=== PATIENT | female | born 1985 | race Caucasian/White ===

== ENCOUNTER 2020-01-10 18:53 | Inpatient (IN) | payer MEDICAID, MEDICARE ==
[2020-01-10] MEDS ORDERED: Ondansetron 4 MG Tab.DIS PO ONE (19:30)
[2020-01-10] MEDS ORDERED: Codeine/guaiFENesin 10-100 MG/5 ML Syrup 5 ML Cup PO ONE (19:31)
[2020-01-10] MEDS ORDERED: Acetaminophen 500 MG Tab PO ONE (20:05)
[2020-01-10] MEDS ORDERED: Ibuprofen 800 MG Tab PO ONE (20:06)
--- NOTE | 2020-01-10 20:20 | EDM.PDOC ---
ED HPI GENERAL MEDICAL PROBLEM - General Chief Complaint: Respiratory Problem Stated Complaint: SOB,CONGESTIVE,COUGH Time Seen by Provider: 01/10/20 20:14 Source of Information: Reports: Patient History Limitations: Reports: No Limitations - History of Present Illness INITIAL COMMENTS - FREE TEXT/NARRATIVE: Va is a 34 yo female with COVID like symptoms, She has been unwell since last week. She was tested on Wednesday after a video based visit,but results are not back. She has fever,body aches,dry cough,diarrhea,fatigue.Her mother is here with same symptoms.She has obesity,DM2,and h/o pneumonia(admission in 2018). abdominal Pain Score (Numeric/FACES): 10 - Related Data Allergies Allergy/AdvReac Type Severity Reaction Status Date / Time No Known Allergies Allergy Verified 01/10/20 19:30 Past Medical History Endocrine/Metabolic History: Reports: Diabetes, Type II Other Endocrine/Metabolic History: on Metformin. Social & Family History - Family History Family Medical History: No Pertinent Family History - Tobacco Use Tobacco Use Status *Q: Never Tobacco User - Caffeine Use Caffeine Use: Reports: None - Recreational Drug Use Recreational Drug Use: No ED ROS GENERAL - Review of Systems Review Of Systems: Comprehensive ROS is negative, except as noted in HPI. ED EXAM, GENERAL - Physical Exam Exam: See Below Exam Limited By: No Limitations General Appearance: Alert, Anxious, Moderate Distress Ears: Normal External Exam Nose: Normal Inspection Throat/Mouth: Normal Inspection Head: Atraumatic Respiratory/Chest: Respiratory Distress, Retractions Cardiovascular: Normal Peripheral Pulses Course - Vital Signs Last Recorded V/S: Last Vital Signs Temp 99.9 F 01/10/20 19:10 Pulse 102 H 01/10/20 19:10 Resp 20 01/10/20 19:10 BP 145/94 H 01/10/20 19:10 Pulse Ox 94 L 01/10/20 19:10 - Orders/Labs/Meds Orders: Active Orders 24 hr Category Date Time Status Chest 1V Frontal [CR] Stat Exams 01/10/20 19:14 Taken C-REACTIVE PROTEIN [CHEM] Stat Lab 01/10/20 19:40 Received CBC WITH AUTO DIFF [HEME] Stat Lab 01/10/20 19:40 Received CORONAVIRUS COVID-19 [facility]ONICA [[facility]] Urgent Lab 01/10/20 19:21 Received CPK [CREATINE KINASE,CK] [CHEM] Stat Lab 01/10/20 19:40 Received D-DIMER QUANTITATIVE [COAG] Stat Lab 01/10/20 19:40 Received TROPONIN I [CHEM] Stat Lab 01/10/20 19:40 Received Labs: Laboratory Tests 01/10/20 Range/Units 19:40 Sodium 143 (135-145) mmol/L Potassium 3.6 (3.5-5.3) mmol/L Chloride 105 (100-110) mmol/L Carbon Dioxide 26 (21-32) mmol/L BUN 14 (7-18) mg/dL Creatinine 0.8 (0.55-1.02) mg/dL Est Cr Clr Drug Dosing TNP Estimated GFR (MDRD) > 60 (>60) BUN/Creatinine Ratio 17.5 (9-20) Glucose 117 H (80-116) mg/dL Calcium 9.1 (8.6-10.2) mg/dL Total Bilirubin 0.6 (0.1-1.3) mg/dL AST 26 H (5-25) IU/L ALT 23 (12-36) U/L Alkaline Phosphatase 53 L (56-112) IU/L Total Protein 7.4 (6.0-8.0) g/dL Albumin 3.4 L (3.5-5.2) g/dL Globulin 4.0 g/dL Albumin/Globulin Ratio 0.9 Meds: Medications Discontinued Medications Generic Name Dose Route Start Last Admin Trade Name Freq PRN Reason Stop Dose Admin Acetaminophen 1,000 mg 01/10/20 20:05 01/10/20 20:09 Tylenol Extra Strength PO 01/10/20 20:06 1,000 mg ONETIME ONE Administration Guaifenesin/Codeine Phosphate 5 ml 01/10/20 19:31 01/10/20 19:37 Robitussin Ac PO 01/10/20 19:32 5 ml ONETIME ONE Administration Ibuprofen 800 mg 01/10/20 20:06 01/10/20 20:07 Motrin PO 01/10/20 20:07 Not Given ONETIME ONE Ondansetron HCl 4 mg 01/10/20 19:30 01/10/20 19:37 Zofran Odt PO 01/10/20 19:31 4 mg ONETIME ONE Administration Departure - Departure Time of Disposition: 20:17 Disposition: Admitted As Inpatient 66 Condition: Good Clinical Impression: COVID-19 - Discharge Information Forms: ED Department Discharge Sepsis Event Note (ED) - Evaluation Sepsis Screening Result: Possible Sepsis Risk - Focused Exam Vital Signs: Vital Signs Temp Pulse Resp BP Pulse Ox 01/10/20 19:10 99.9 F 102 H 20 145/94 H 94 L - Problem List & Annotations (1) COVID-19 SNOMED Code(s): 436162546 Code(s): U07.1 - COVID-19 Status: Acute (2) Diabetes type 2, controlled SNOMED Code(s): 38224320, 421104760 Code(s): E11.9 - TYPE 2 DIABETES MELLITUS WITHOUT COMPLICATIONS Status: Acute Qualifiers: Diabetes mellitus salvage determiner insulin use: without salvage determiner use (3) Obesity SNOMED Code(s): 933755836, 320356239 Code(s): E66.9 - OBESITY, UNSPECIFIED Status: Acute - Problem List Review Problem List Initiated/Reviewed/Updated: Yes - My Orders Last 24 Hours: My Active Orders 01/10/20 19:14 Chest 1V Frontal [CR] Stat 01/10/20 19:21 CORONAVIRUS COVID-19 [facility]ONIAC [MOLEC] Urgent 01/10/20 19:40 C-REACTIVE PROTEIN [CHEM] Stat CBC WITH AUTO DIFF [HEME] Stat CPK [CREATINE KINASE,CK] [CHEM] Stat D-DIMER QUANTITATIVE [COAG] Stat TROPONIN I [CHEM] Stat - Assessment/Plan Last 24 Hours: My Active Orders 01/10/20 19:14 Chest 1V Frontal [CR] Stat 01/10/20 19:21 CORONAVIRUS COVID-19 VERONICA [MOLEC] Urgent 01/10/20 19:40 C-REACTIVE PROTEIN [CHEM] Stat CBC WITH AUTO DIFF [HEME] Stat CPK [CREATINE KINASE,CK] [CHEM] Stat D-DIMER QUANTITATIVE [COAG] Stat TROPONIN I [CHEM] Stat Plan: Patient has comorbid conditions-DM2,and Obesity. XCr is suggestive of COVID pneumonia. She has tachypnea dn O2of 94%. It is reasonable to admit for monitoring of progression and trial of antiviral therapy.
[2020-01-10] MEDS: Sodium Chloride 0.9% 1,000 ML IV SCH (21:02)
[2020-01-10] MEDS: Enoxaparin 40 MG/0.4 ML Syringe SUBCUT SCH (22:38)
[2020-01-11] MEDS: Acetaminophen 325 MG Tab PO PRN ×2 (00:13→15:01)
[2020-01-11] MEDS: Sodium Chloride 0.9% 1,000 ML IV SCH ×3 (05:30→21:47)
--- NOTE | 2020-01-11 09:57 | HP ---
ADMISSION DATE: 01/10/2020 HISTORY: Va is a 34-year-old woman from [place], [place], with a history of type 2 diabetes, obesity. She came into the emergency room last evening because of shortness of breath. She had been sick for approximately a week with cold symptoms, scratchy throat, low-grade fevers, and cough with fatigue. Both mother and [id number] tested positive for COVID and the family was altogether on Halloween giving each other hugs, etc. The patient got more short of breath yesterday and came into the emergency room for admission. COVID test done in the clinic on 01/07 was not yet back, but a rapid test in the clinic last night was negative. She has been given an albuterol from the clinic for wheezing. PAST MEDICAL HISTORY: Positive for the diabetes, obesity. She also has a history of cholecystectomy and bilateral reduction mammoplasty. She has had no other hospitalizations, pregnancies, injuries, or major medical illnesses. MEDICATIONS: 1. Albuterol inhaler. 2. Vitamin D3 5000 units daily. 3. Meloxicam 7.5 mg at bedtime p.r.n. 4. Metformin 500 mg b.i.d. 5. Multiple vitamin 1 daily. ALLERGIES: None. HABITS: Nonsmoker and nondrinker. FAMILY AND SOCIAL HISTORY: The patient lives by herself in [place]. She lists next of kin as mother, Kaya Buckley in [place]. REVIEW OF SYSTEMS: GENERAL: No seizure, syncope, or recent significant weight change. SKIN: Negative for rash. HEENT: No recent changes in hearing or vision. She has had a sore throat and a cough with dyspnea. PULMONARY: No chest pains or palpitations. GASTROINTESTINAL: No abdominal pain. No nausea. She has had a poor appetite, however, no diarrhea, constipation, hematochezia, or melena. GENITOURINARY: No hematuria or UTI symptoms. MUSCULOSKELETAL: No joint inflammation, swelling, or skin rash. PHYSICAL EXAMINATION: GENERAL: She is alert, but somewhat anxious with nasal cannula O2 running. VITAL SIGNS: Blood pressure 101/67, pulse 58 and regular, respirations 18, temperature 98.7, O2 saturation is 95% on 1 L nasal cannula oxygen. Weight is 213 pounds for a BMI in the 30s. SKIN: Anicteric, warm, dry without rash. HEENT: Pupils are equal and reactive. Oropharynx: Mouth is dry. LUNGS: Clear in the upper lung lam. She has rhonchi in the left mid lung and she has decreased breath sounds or rales at the right lower lung field. HEART: Regular without murmur, rub, or gallop. ABDOMEN: Obese, soft, nontender. No masses. No organomegaly. Deep palpation in the upper abdomen does cause a slight discomfort. EXTREMITIES: Warm, well perfused. Good pedal pulses. No edema. IMAGING DATA: Chest x-ray shows bilateral infiltrates. LABORATORY DATA: White count 4700, hemoglobin 14. D-dimer 0.85. Sodium 144, potassium 3.4. CRP 9.2. COVID rapid test positive. ASSESSMENT: 1. COVID pneumonia. 2. Diabetes. 3. Obesity. PLAN: She is getting enoxaparin anticoagulation per protocol, Remdesivir protocol, IV fluid, oxygen. We will continue to monitor vital signs, laboratory, and plan the full course of Remdesivir. We will pay close attention to a potential need for higher level of care. /[id number] YSABEL/RUDDY
[2020-01-11] MEDS: Enoxaparin 40 MG/0.4 ML Syringe SUBCUT SCH (20:45)
[2020-01-11] MEDS ORDERED: REMDESIVIR (EUA) 100 MG in Sodium Chloride 0.9% 100 ML IV SCH ×4 (21:00)
[2020-01-12] MEDS: Sodium Chloride 0.9% 1,000 ML IV SCH ×3 (05:54→22:30)
[2020-01-12] MEDS: Acetaminophen 325 MG Tab PO PRN ×2 (06:29→21:13)
[2020-01-12] MEDS: Dexamethasone 2 MG Tab PO SCH (10:24)
[2020-01-12] MEDS: Enoxaparin 40 MG/0.4 ML Syringe SUBCUT SCH ×2 (10:26→21:14)
[2020-01-12] MEDS ORDERED: REMDESIVIR (EUA) 100 MG in Sodium Chloride 0.9% 100 ML IV SCH (12:24)
--- NOTE | 2020-01-12 13:57 | PCM.PN ---
- General Info Date of Service: 01/12/20 Subjective Update: Va is doing better today, shortness of breath has improved. She was weaned off oxygen this morning. Her appetite is improving and able to keep food down. Denies any pain. - Patient Data Vitals - Most Recent: Last Vital Signs Temp 97.9 F 01/12/20 07:30 Pulse 77 01/12/20 07:30 Resp 18 01/12/20 07:30 BP 120/77 01/12/20 07:30 Pulse Ox 93 L 01/12/20 08:00 Weight - Most Recent: 213 lb 6 oz I&O - Last 24 Hours: Intake & Output 01/11/20 01/12/20 01/12/20 22:59 06:59 14:59 Intake Total 1625 1448 Output Total 0 Balance 1625 1448 Lab Results Last 24 Hours: Laboratory Results - last 24 hr 01/11/20 01/11/20 01/12/20 Range/Units 14:49 16:51 05:40 PT (9.0-11.1) sec INR (1.00-1.24) APTT (24.4-33.2) SECONDS D-Dimer, Quantitative (0.0-0.59) mg/LFEU POC Glucose 95 125 H 124 H (74-100) mg/dL AST (5-25) IU/L ALT (12-36) U/L 01/12/20 01/12/20 01/12/20 Range/Units 06:55 06:55 11:31 PT 10.8 (9.0-11.1) sec INR 1.00 (1.00-1.24) APTT 31.1 (24.4-33.2) SECONDS D-Dimer, Quantitative 0.78 H (0.0-0.59) mg/LFEU POC Glucose 192 H (74-100) mg/dL AST 22 D (5-25) IU/L ALT 20 D (12-36) U/L Med Orders - Current: Current Medications Acetaminophen (Tylenol) 650 mg PO Q4H PRN PRN Reason: Pain (Mild 1-3)/fever Last Admin: 01/12/20 06:29 Dose: 650 mg Documented by: Dexamethasone (Dexamethasone) 6 mg PO DAILY [facility] Last Admin: 01/12/20 10:24 Dose: 6 mg Documented by: Enoxaparin Sodium (Lovenox) 40 mg SUBCUT BID [facility] Last Admin: 01/12/20 10:26 Dose: 40 mg Documented by: Sodium Chloride (Normal Saline) 1,000 mls @ 125 mls/hr IV ASDIRECTED [facility] Last Admin: 01/12/20 05:54 Dose: 125 mls/hr Documented by: Remdesivir 100 mg/ Sodium (Chloride) 100 mls @ 100 mls/hr IV Q24H [facility] Stop: 01/14/20 21:59 Discontinued Medications Acetaminophen (Tylenol Extra Strength) 1,000 mg PO ONETIME ONE Stop: 01/10/20 20:06 Last Admin: 01/10/20 20:09 Dose: 1,000 mg Documented by: Dexamethasone (Dexamethasone) 3 mg PO BID [facility] Last Admin: 01/11/20 20:45 Dose: 3 mg Documented by: Enoxaparin Sodium (Lovenox) 40 mg SUBCUT Q24H [facility] Last Admin: 01/11/20 20:45 Dose: 40 mg Documented by: Guaifenesin/Codeine Phosphate (Robitussin Ac) 5 ml PO ONETIME ONE Stop: 01/10/20 19:32 Last Admin: 01/10/20 19:37 Dose: 5 ml Documented by: Remdesivir 200 mg/ Sodium (Chloride) 250 mls @ 250 mls/hr IV ONETIME ONE Stop: 01/10/20 20:21 Last Admin: 01/10/20 21:02 Dose: 250 mls/hr Documented by: Remdesivir 100 mg/ Sodium (Chloride) 100 mls @ 100 mls/hr IV Q24H [facility] Stop: 01/14/20 21:59 Last Admin: 01/11/20 21:13 Dose: 100 mls/hr Documented by: Ibuprofen (Motrin) 800 mg PO ONETIME ONE Stop: 01/10/20 20:07 Last Admin: 01/10/20 20:07 Dose: Not Given Documented by: Ondansetron HCl (Zofran Odt) 4 mg PO ONETIME ONE Stop: 01/10/20 19:31 Last Admin: 01/10/20 19:37 Dose: 4 mg Documented by: - Exam General: Alert, Oriented, Cooperative, No Acute Distress Lungs: Decreased Breath Sounds (diminished bibasilar), Rales (BUL). No: Wheezing Cardiovascular: Regular Rate, Regular Rhythm GI/Abdominal Exam: Normal Bowel Sounds, Soft, Non-Tender, No Distention Sepsis Event Note - Evaluation Sepsis Screening Result: No Definite Risk - Focused Exam Vital Signs: Vital Signs Temp Pulse Resp BP Pulse Ox Pulse Ox 01/12/20 08:00 93 L 01/12/20 07:30 97.9 F 77 18 120/77 93 L 01/12/20 06:50 98.2 F 55 L 18 127/80 94 L 01/12/20 03:16 99.1 F 62 18 111/75 92 L - Problem List & Annotations (1) COVID-19 SNOMED Code(s): 072868414 Code(s): U07.1 - COVID-19 Status: Acute Current Visit: No (2) Diabetes type 2, controlled SNOMED Code(s): 97091430, 190557375 Code(s): E11.9 - TYPE 2 DIABETES MELLITUS WITHOUT COMPLICATIONS Status: Chronic Current Visit: No Qualifiers: Diabetes mellitus reconstructive dentist insulin use: without group home use (3) Obesity SNOMED Code(s): 253690515, 779658904 Code(s): E66.9 - OBESITY, UNSPECIFIED Status: Chronic Current Visit: No - Problem List Review Problem List Initiated/Reviewed/Updated: Yes - My Orders Last 24 Hours: My Active Orders 01/12/20 09:00 Enoxaparin [Lovenox] 40 mg SUBCUT BID dexAMETHasone 6 mg PO DAILY - Plan Plan:: 1. COVID: Remdesivir 100 mg daily, day 3, Dexamethasone 6 mg daily day 2. Weaned off oxygen. Will complete treatment on Wednesday, continues to improve as she is possible discharge on Wednesday. 2. DM: Consistent carb diet, glucose checks tid, so far as not required any insu fredis. If need will start Humalog sliding scale. 3. DVT prophylaxis: Lovenox 40 mg bid since she is obese and has elevated D- Dimer.
[2020-01-12] MEDS: REMDESIVIR (EUA) 100 MG in Sodium Chloride 0.9% 100 ML IV SCH (21:14)
[2020-01-13] MEDS: Sodium Chloride 0.9% 1,000 ML IV SCH ×2 (07:08→18:19)
[2020-01-13] MEDS: Enoxaparin 40 MG/0.4 ML Syringe SUBCUT SCH ×2 (08:32→20:06)
[2020-01-13] MEDS: Dexamethasone 2 MG Tab PO SCH (08:40)
--- NOTE | 2020-01-13 16:30 | PCM.PN ---
- General Info Date of Service: 01/13/20 Subjective Update: Va is feeling better, still dry cough, slept better last night, appetite is improving. Drinking more liquids. Had loose stool this morning. - Patient Data Vitals - Most Recent: Last Vital Signs Temp 97.9 F 01/13/20 12:00 Pulse 53 L 01/13/20 12:00 Resp 18 01/13/20 12:00 BP 118/81 01/13/20 12:00 Pulse Ox 93 L 01/13/20 12:00 Weight - Most Recent: 213 lb 6 oz I&O - Last 24 Hours: Intake & Output 01/13/20 01/13/20 01/13/20 06:59 14:59 22:59 Intake Total 962 1054 Balance 962 1054 Lab Results Last 24 Hours: Laboratory Results - last 24 hr 01/13/20 Range/Units 05:58 POC Glucose 101 H (74-100) mg/dL Med Orders - Current: Current Medications Acetaminophen (Tylenol) 650 mg PO Q4H PRN PRN Reason: Pain (Mild 1-3)/fever Last Admin: 01/12/20 21:13 Dose: 650 mg Documented by: Dexamethasone (Dexamethasone) 6 mg PO DAILY [facility] Last Admin: 01/13/20 08:40 Dose: 6 mg Documented by: Enoxaparin Sodium (Lovenox) 40 mg SUBCUT BID [facility] Last Admin: 01/13/20 08:32 Dose: 40 mg Documented by: Sodium Chloride (Normal Saline) 1,000 mls @ 75 mls/hr IV ASDIRECTED [facility] Last Infusion: 01/13/20 10:33 Dose: 75 mls/hr Documented by: Remdesivir 100 mg/ Sodium (Chloride) 100 mls @ 100 mls/hr IV Q24H [facility] Stop: 01/14/20 21:59 Last Admin: 01/12/20 21:14 Dose: 100 mls/hr Documented by: Discontinued Medications Acetaminophen (Tylenol Extra Strength) 1,000 mg PO ONETIME ONE Stop: 01/10/20 20:06 Last Admin: 01/10/20 20:09 Dose: 1,000 mg Documented by: Dexamethasone (Dexamethasone) 3 mg PO BID [facility] Last Admin: 01/11/20 20:45 Dose: 3 mg Documented by: Enoxaparin Sodium (Lovenox) 40 mg SUBCUT Q24H [facility] Last Admin: 01/11/20 20:45 Dose: 40 mg Documented by: Guaifenesin/Codeine Phosphate (Robitussin Ac) 5 ml PO ONETIME ONE Stop: 01/10/20 19:32 Last Admin: 01/10/20 19:37 Dose: 5 ml Documented by: Remdesivir 200 mg/ Sodium (Chloride) 250 mls @ 250 mls/hr IV ONETIME ONE Stop: 01/10/20 20:21 Last Admin: 01/10/20 21:02 Dose: 250 mls/hr Documented by: Remdesivir 100 mg/ Sodium (Chloride) 100 mls @ 100 mls/hr IV Q24H [facility] Stop: 01/14/20 21:59 Last Admin: 01/11/20 21:13 Dose: 100 mls/hr Documented by: Ibuprofen (Motrin) 800 mg PO ONETIME ONE Stop: 01/10/20 20:07 Last Admin: 01/10/20 20:07 Dose: Not Given Documented by: Ondansetron HCl (Zofran Odt) 4 mg PO ONETIME ONE Stop: 01/10/20 19:31 Last Admin: 01/10/20 19:37 Dose: 4 mg Documented by: - Exam General: Alert, Oriented, Cooperative, No Acute Distress Lungs: Clear to Auscultation, Normal Respiratory Effort, Decreased Breath Sounds (throughout). No: Crackles, Wheezing Cardiovascular: Regular Rate, Regular Rhythm GI/Abdominal Exam: Normal Bowel Sounds, Soft, Non-Tender, No Distention Extremities: No Pedal Edema Peripheral Pulses: 2+: Radial (L), Radial (R) Sepsis Event Note - Evaluation Sepsis Screening Result: No Definite Risk - Focused Exam Vital Signs: Vital Signs Temp Pulse Resp BP Pulse Ox 01/13/20 12:00 97.9 F 53 L 18 118/81 93 L 01/13/20 08:00 98.8 F 59 L 18 122/80 95 - Problem List & Annotations (1) COVID-19 SNOMED Code(s): 850446571 Code(s): U07.1 - COVID-19 Status: Acute Current Visit: No (2) Diabetes type 2, controlled SNOMED Code(s): 25692890, 519776431 Code(s): E11.9 - TYPE 2 DIABETES MELLITUS WITHOUT COMPLICATIONS Status: Chronic Current Visit: No Qualifiers: Diabetes mellitus mcc insulin use: without terminal operator use (3) Obesity SNOMED Code(s): 022036924, 403464295 Code(s): E66.9 - OBESITY, UNSPECIFIED Status: Chronic Current Visit: No - Problem List Review Problem List Initiated/Reviewed/Updated: Yes - My Orders Last 24 Hours: My Active Orders 01/14/20 06:00 COMPREHENSIVE METABOLIC PN,CMP [CHEM] Routine - Plan Plan:: 1. COVID: Remdesivir 100 mg daily, day 4, Dexamethasone 6 mg daily day 3. 2. DM: Consistent carb diet, glucose checks tid, so far as not required any insulin. If need will start Humalog sliding scale. 3. DVT prophylaxis: Lovenox 40 mg bid since she is obese.
[2020-01-13] MEDS: REMDESIVIR (EUA) 100 MG in Sodium Chloride 0.9% 100 ML IV SCH (20:03)
[2020-01-14] MEDS: Dexamethasone 2 MG Tab PO SCH (08:13)
[2020-01-14] MEDS: Enoxaparin 40 MG/0.4 ML Syringe SUBCUT SCH (08:13)
[2020-01-14] MEDS ORDERED: Potassium Chloride 20 MEQ Tab.ER PO SCH (09:15)
[2020-01-14] MEDS: Sodium Chloride 0.9% 1,000 ML IV SCH (09:49)
[2020-01-14] MEDS ORDERED: REMDESIVIR (EUA) 100 MG in Sodium Chloride 0.9% 100 ML IV SCH (12:45)
--- NOTE | 2020-01-15 12:56 | PCM.DCSUM1 ---
Discharge Summary - Hospital Course HPI Initial Comments: Had exposure over Halloween with family, started having more shortness of breath. Was positive for covid required oxygen and admitted for treatment. History of DM, obesity. 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 Diagnosis: Stroke: No - Discharge Data Discharge Date: 01/14/20 Discharge Disposition: Home, Self-Care 01 Condition: Good - Referral to Home Health Primary Care Physician: PCP None - Discharge Diagnosis/Problem(s) (1) COVID-19 SNOMED Code(s): 254601898 ICD Code: U07.1 - COVID-19 Status: Acute Problem Details: Improving, off oxygen over 48 hours, saturation up to 97% on room air. (2) Diabetes type 2, controlled SNOMED Code(s): 94371584, 895368112 ICD Code: E11.9 - TYPE 2 DIABETES MELLITUS WITHOUT COMPLICATIONS Status: Chronic Qualifiers: Diabetes mellitus adjunct faculty for medical terminology insulin use: without senior care use (3) Obesity SNOMED Code(s): 570125144, 041737922 ICD Code: E66.9 - OBESITY, UNSPECIFIED Status: Chronic - Patient Summary/Data Hospital Course: Va was admitted for Covid viral infection, started Remdesivir and Dexamethasone completed 5 day course of both. She required 1 liter of oxygen and then weaned by Wednesday. IVF were slowed as she increased her oral intake, discontinue day of discharge. Her D-dimer was slightly elevated, she was on Lovenox 40 mg bid during hospital course. Her blood sugars did not require any insulin during hospital stay. Will continue quarantine at home. - Patient Instructions Diet: Diabetic Diet Activity: As Tolerated Showering/Bathing: May Shower Notify Provider of: Fever, Nausea and/or Vomiting Other/Special Instructions: Continue to quarantine at home until Jan 23. Maintain good hand washing techniques. Return to ER if you develop sudden shortness of breath or difficulty breathing. - Discharge Plan *PRESCRIPTION DRUG MONITORING PROGRAM REVIEWED*: Not Applicable *COPY OF PRESCRIPTION DRUG MONITORING REPORT IN PATIENT LUIZ: Not Applicable Home Medications: Home Meds Cholecalciferol (Vitamin D3) [Vitamin D] 5,000 unit PO DAILY 01/11/20 [History] Cholestyramine/Sucrose [Cholestyramine] 4 gm PO DAILY 01/11/20 [History] Glycopyrrolate 1 mg PO BID 01/11/20 [History] Norethindrone [Norlyda] 0.35 mg PO DAILY 01/11/20 [History] metFORMIN [Glucophage] 500 mg PO BIDMEALS 01/11/20 [History] Oxygen Therapy Mode: Room Air Patient Handouts: COVID-19 Frequently Asked Questions, COVID-19: How to Protect Yourself and Others - CDC, Venous Thromboembolism Prevention, Prevent the Spread of COVID-19 if You Are Sick - [facility] Forms: ED Department Discharge Referrals: PCP,None [Primary Care Provider] - - Discharge Summary/Plan Comment DC Time >30 min.: No - General Info Date of Service: 01/14/20 Subjective Update: breathing improved, coughing less. Eating and drinking normally. Would like to go home today after infusion done. - Patient Data Vitals - Most Recent: Last Vital Signs Temp 97 F 01/14/20 11:50 Pulse 55 L 01/14/20 11:50 Resp 18 01/14/20 11:50 BP 126/82 01/14/20 11:50 Pulse Ox 99 01/14/20 11:50 Weight - Most Recent: 213 lb 6 oz Lab Results - Last 24 hrs: Laboratory Results - last 24 hr 01/14/20 Range/Units 11:12 POC Glucose 178 H (74-100) mg/dL Med Orders - Current: Current Medications Discontinued Medications Acetaminophen (Tylenol Extra Strength) 1,000 mg PO ONETIME ONE Stop: 01/10/20 20:06 Last Admin: 01/10/20 20:09 Dose: 1,000 mg Documented by: Acetaminophen (Tylenol) 650 mg PO Q4H PRN PRN Reason: Pain (Mild 1-3)/fever Last Admin: 01/12/20 21:13 Dose: 650 mg Documented by: Dexamethasone (Dexamethasone) 3 mg PO BID [facility] Last Admin: 01/11/20 20:45 Dose: 3 mg Documented by: Dexamethasone (Dexamethasone) 6 mg PO DAILY [facility] Last Admin: 01/14/20 08:13 Dose: 6 mg Documented by: Enoxaparin Sodium (Lovenox) 40 mg SUBCUT Q24H [facility] Last Admin: 01/11/20 20:45 Dose: 40 mg Documented by: Enoxaparin Sodium (Lovenox) 40 mg SUBCUT BID [facility] Last Admin: 01/14/20 08:13 Dose: 40 mg Documented by: Guaifenesin/Codeine Phosphate (Robitussin Ac) 5 ml PO ONETIME ONE Stop: 01/10/20 19:32 Last Admin: 01/10/20 19:37 Dose: 5 ml Documented by: Sodium Chloride (Normal Saline) 1,000 mls @ 75 mls/hr IV ASDIRECTED [facility] Last Admin: 01/14/20 09:49 Dose: 75 mls/hr Documented by: Remdesivir 200 mg/ Sodium (Chloride) 250 mls @ 250 mls/hr IV ONETIME ONE Stop: 01/10/20 20:21 Last Admin: 01/10/20 21:02 Dose: 250 mls/hr Documented by: Remdesivir 100 mg/ Sodium (Chloride) 100 mls @ 100 mls/hr IV Q24H [facility] Stop: 01/14/20 21:59 Last Admin: 01/11/20 21:13 Dose: 100 mls/hr Documented by: Remdesivir 100 mg/ Sodium (Chloride) 100 mls @ 100 mls/hr IV Q24H [facility] Stop: 01/14/20 21:59 Last Admin: 01/13/20 20:03 Dose: 100 mls/hr Documented by: Remdesivir 100 mg/ Sodium (Chloride) 100 mls @ 100 mls/hr IV Q24H [facility] Stop: 01/14/20 13:44 Last Admin: 01/14/20 13:10 Dose: 100 mls/hr Documented by: Ibuprofen (Motrin) 800 mg PO ONETIME ONE Stop: 01/10/20 20:07 Last Admin: 01/10/20 20:07 Dose: Not Given Documented by: Ondansetron HCl (Zofran Odt) 4 mg PO ONETIME ONE Stop: 01/10/20 19:31 Last Admin: 01/10/20 19:37 Dose: 4 mg Documented by: Potassium Chloride (Klor-Con M20) 40 meq PO DAILY [facility] Last Admin: 01/14/20 09:32 Dose: 40 meq Documented by: Sodium Chloride (Saline Flush) 3 ml FLUSH DAILY [facility] - Exam Quality Assessment: Denies: Supplemental Oxygen General: Reports: Alert, Oriented, Cooperative, No Acute Distress Lungs: Reports: Clear to Auscultation, Normal Respiratory Effort Cardiovascular: Reports: Regular Rate, Regular Rhythm GI/Abdominal Exam: Normal Bowel Sounds, Soft, Non-Tender, No Distention
== END 2020-01-14 14:05 | disposition home or self-care (01) | DRG 177 ==
LOC: FB.ED 18:53 → FB.MS 20:20 → UNDOADMOB 20:42 → FB.MS 20:42 → INTOOBSV 20:43 → FB.MS 20:43 → OBSVTOIN 20:43 → UNDOADMOB 20:43 → UNDODISIN 01-14 14:05
PROVIDERS: ADMIT Family Medicine; ATTEND Family Medicine
PROC: XW033E5 Introduction of Remdesivir Anti-infective into Peripheral Vein, Percutaneous Approach, New Technology Group 5 (ICD-10-PCS; principal; 2020-01-10)
DX: U07.1 COVID-19 (principal); J12.89 Other viral pneumonia; E66.9 Obesity, unspecified; Z79.84 Long term (current) use of oral hypoglycemic drugs; E11.9 Type 2 diabetes mellitus without complications; Z90.49 Acquired absence of other specified parts of digestive tract; Z79.899 Other long term (current) drug therapy; Z68.36 Body mass index [BMI] 36.0-36.9, adult
CPT/HCPCS: 36415; 71045; 80053; 82550; 84484; 85025; 85379; 86140; A9270 ×3; U0002; 80048; 82962; 84450; 84460; 85610; 85730; 99285; 99285-25; J1650; J7030; J7050; J8540